=== PATIENT | male | born 1970 | race Caucasian/White ===

== ENCOUNTER 2020-04-17 23:08 | Observation (INO) | payer BC ==
[2020-04-17] MEDS: Nitroglycerin 0.4 MG Tab.SL SL ONE ×2 (23:46→23:52)
[2020-04-18] MEDS: Nitroglycerin 0.4 MG Tab.SL SL ONE
[2020-04-18 00:02] LABS: ANION GAP 19.5 mmol/L (5-15); CHLORIDE,CL 96 mmol/L (98-107); SODIUM,NA 134 mmol/L (136-145)
[2020-04-18] MEDS ORDERED: Sodium Chloride 0.9% 10 ML Syringe FLUSH PRN (01:32)
[2020-04-18] MEDS ORDERED: Aspirin 81 MG Tab.Chew ONE (01:37)
[2020-04-18] MEDS ORDERED: Hydrochlorothiazide 12.5 MG Cap PO SCH (09:00)
[2020-04-18] MEDS ORDERED: Lisinopril 20 MG Tab PO SCH (09:00)
[2020-04-18] MEDS ORDERED: Venlafaxine 37.5 MG Cap.ER PO SCH (09:00)
[2020-04-18] MEDS ORDERED: Metoprolol Succinate 25 MG Tab.ER PO SCH (09:00)
[2020-04-18] MEDS ORDERED: amLODIPine 5 MG Tab PO SCH (09:00)
[2020-04-18] MEDS ORDERED: Omeprazole 20 MG Cap.CR PO SCH (09:00)
[2020-04-18] MEDS ORDERED: atorvaSTATin 40 MG Tab PO SCH (09:00)
== END 2020-04-18 10:29 | disposition home or self-care (01) ==
LOC: KA.ED 23:08 → KA.MS 04-18 01:05 → UNDOADMOB 04-18 01:45 → KA.MS 04-18 01:45
PROVIDERS: ADMIT Physician Assistant Surgical; ATTEND Nurse Practitioner Family
DX: R07.9 Chest pain, unspecified (principal); E78.00 Pure hypercholesterolemia, unspecified; I10 Essential (primary) hypertension; F41.9 Anxiety disorder, unspecified; F32.9 Major depressive disorder, single episode, unspecified; K21.9 Gastro-esophageal reflux disease without esophagitis; F17.210 Nicotine dependence, cigarettes, uncomplicated; E66.3 Overweight; N52.9 Male erectile dysfunction, unspecified; Z20.822 Contact with and (suspected) exposure to COVID-19; Z79.899 Other long term (current) drug therapy; Z95.5 Presence of coronary angioplasty implant and graft; Z68.23 Body mass index [BMI] 23.0-23.9, adult; Z20.828 Contact with and (suspected) exposure to other viral communicable diseases
CPT/HCPCS: 36415; 71046; 80048; 84484; 85025; 93005; 99284; 99285-25; A9270-GY; G0378; U0002

== ENCOUNTER 2022-03-01 23:15 | Emergency (ER) | payer BC ==
[2022-03-01] MEDS ORDERED: Ketorolac 60 MG/2 ML SDV IM ONE (23:30)
== END 2022-03-01 23:50 | disposition home or self-care (01) ==
LOC: KA.ED 23:15
DX: S43.102A Unspecified dislocation of left acromioclavicular joint, initial encounter (principal); E78.00 Pure hypercholesterolemia, unspecified; I10 Essential (primary) hypertension; K21.9 Gastro-esophageal reflux disease without esophagitis; Z79.899 Other long term (current) drug therapy; W00.0XXA Fall on same level due to ice and snow, initial encounter
CPT/HCPCS: 71045; 73030-LT; 96372; 99283; J1885